=== PATIENT | female | born 2005 | race Caucasian/White ===

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

== ENCOUNTER 2023-08-16 05:20 | Outpatient (CLI) | payer BC, SELFPAY ==
[2023-08-16 16:23] LABS: Abs Immature Grans 0.02 10^3/uL (0.0-0.06); Absolute Basophil Count 0.04 10^3/uL (0.0-0.2); Absolute Eosinophil Count 0.22 10^3/uL (0.0-0.7); Absolute Lymphocyte Count 2.52 10^3/uL (1.2-3.4); Absolute Monocyte Count 0.68 10^3/uL (0.1-0.8); Absolute Neutrophil Count 3.92 10^3/uL (1.2-6.7); Basophils % 0.5 %; HCT 45.3 % (36.0-46.0); HGB 15.5 g/dL (11.2-15.7); Immature Grans % 0.3 %; Lymphocytes % 34.1 %; MCH 30.5 pg (27.0-33.0); MCHC 34.2 % (32.0-36.0); MCV 89 fL (80-95); MPV 9.9 fL (8.0-11.0); Monocytes % 9.2 %; Neutrophils % 52.9 %; Platelet Count 213 10^3/uL (130-400); RBC 5.08 10^6/uL (3.93-5.22); RDW 12.4 % (11.7-14.6)
[2023-08-16 16:54] LABS: ALT 31 U/L (14-59); AST 21 U/L (15-37); Albumin 4.3 g/dL (3.4-5.0); Alkaline Phosphatase 92 U/L (46-116); Anion Gap 9.3 mmol/L (3-11); BUN 18 mg/dL (7-18); Bilirubin, Total 0.5 mg/dL (0.2-1.0); CO2 27.7 mmol/L (21.0-32.0); CREATININE 0.8 mg/dL (0.55-1.02); Calcium 8.9 mg/dL (8.5-10.1); Chloride 102 mmol/L (98-107); Estimated GFR 108.78 (mL/min/1.73m2); Glucose 104 mg/dL (74-106); Potassium 3.9 mmol/L (3.5-5.1); Sodium 139 mmol/L (136-145); TSH (W/Ref FT4) 1.53 uIU/mL (0.52-4.13); Total Protein 7.8 g/dL (6.4-8.2)
[2023-08-16 17:52] LABS: Vitamin D 25 Total 24.5 ng/mL (30-100)
== END 2023-08-16 05:21 | disposition home or self-care (01) ==
LOC: LBO 05:20
PROVIDERS: Visit Provider Nurse Practitioner Family
DX: G89.29 Other chronic pain (principal); R53.83 Other fatigue
CPT/HCPCS: 36415; 80053; 82306; 84443; 85025

== ENCOUNTER 2024-08-14 08:18 | Outpatient (REF) | payer BC, SELFPAY ==
[2024-08-22 10:16] LABS: Testosterone, Total 514 ng/dL (8-60)
== END 2024-08-14 08:19 | disposition home or self-care (01) ==
LOC: NCHCN 08:18
PROVIDERS: Visit Provider Family Medicine
DX: Z51.81 Encounter for therapeutic drug level monitoring (principal)
CPT/HCPCS: 84403

== ENCOUNTER 2024-12-26 18:58 | Outpatient (REF) | payer BC, SELFPAY ==
--- NOTE | 2024-12-26 15:30 | PAPFT_PTH ---
PATIENT: Saad Santiago LOC: [facility]#:[id number] AGE/SX: 19/F ROOM: RE12/26/[address]: [place]: 2005 BED: DIS: 12/26/2024 SPEC #: [id number] RECD: 12/27/24 12:50 STATUS: MAGGIE BURROWS #: [id number] OTONIEL: 12/26/24 15:[address]: Yokasta Grubbs DEPT: [facility] Cytology RECD BY: Iman Loaiza ENTERED: 12/27/24 12:50 SP TYPE: PAPFT OTHR DR: Unknown,Unknown Tissues: 1 - CX/ENDOCX FOR PAP SMEARS Procedures: PAP THIN PREP/[facility] Screening HPV DNA PROBE Comments: [id number] (HPV 16 & 18/45) (CHLAMYDIA/GC)
[2024-12-30 11:57] LABS: Chlamydia Result Negative (Negative); GC Result Negative (Negative)
== END 2024-12-26 18:59 | disposition home or self-care (01) ==
LOC: NCHCN 18:58
PROVIDERS: Referring Provider Family Medicine; Visit Provider Family Medicine
DX: Z12.4 Encounter for screening for malignant neoplasm of cervix (principal)
CPT/HCPCS: 87491; 87591; 88142; 87624